=== PATIENT | female | born 1995 | race Caucasian/White ===

== ENCOUNTER 2022-10-10 16:36 | Outpatient (CLI) | payer SELFPAY ==
[~2022-10-10] VITALS: Ht 157.5 cm; Wt 112.5 kg
[2022-10-10 16:50] VITALS: BP 119/61; PULSE 104; TEMP 99
--- NOTE | 2022-10-10 16:50 | NUR ---
Presents to labor and delivery. States her water broke. Repositioned patient to get baby on monitor. Vag check done, moderate amount of white drainage noted. Amnio test done, negative results. States has not eaten since breakfast. Popsycle and sandwich given.
[2022-10-10 17:20] VITALS: BP 103/77; PULSE 102
[2022-10-10] MEDS ORDERED: PROTONIX 40MG T40 MG PO (17:23)
[2022-10-10] MEDS ORDERED: PRENATAL FORMU1 EAC3 PO (17:24)
[2022-10-10] MEDS ORDERED: ZOFRAN 4MG T4 MG/TAB PO (17:24)
[2022-10-10] MEDS ORDERED: ASPIRIN 81M81 MG/TA2 PO (17:25)
--- NOTE | 2022-10-10 17:50 | NUR ---
Discharge instructions given, verbalizes understanding. Dismissed to home with mother, ambulatory, stable, alert.
== END 2022-10-10 17:50 | disposition home or self-care (01) ==
LOC: LDRO 16:36
DX: O42.90 Premature rupture of membranes, unspecified as to length of time between rupture and onset of labor, unspecified weeks of gestation (principal); Z3A.00 Weeks of gestation of pregnancy not specified

== ENCOUNTER 2022-11-11 06:15 | Inpatient (IN) | payer MEDICAID ==
[2022-11-11] VITALS (51 sets, daily range): BP systolic 91–132; BP diastolic 47–99; PULSE 16–109; TEMP 97.7–98.7
[~2022-11-11] VITALS: Ht 157.6 cm; Wt 123.6 kg
[~2022-11-11 06:15] MED LIST: ASPIRIN 81M81 MG/TA2 PO; PRENATAL FORMU1 EAC3 PO; PROTONIX 40MG T40 MG PO; ZOFRAN 4MG T4 MG/TAB PO
--- NOTE | 2022-11-11 06:20 | NUR ---
Presents to labor and delivery for induction of labor. Assessment done, questions offered and answered. Iv start by nurse Cinthia. 0745 Pen g 5 million units iv started as ordered and per protocol. Pitocin 2 atif units iv started as ordered and per protocol.
--- NOTE | 2022-11-11 07:38 | NUR ---
Pen g 5 million units iv started as ordered and per protocol.
[2022-11-11 07:42] LABS: BASO % 0.3 % (0.0-2.0); EOS # 0.2 K/mm3 (0.0-0.7); GRAN # 5.3 K/mm3 (1.4-6.5); HEMOGLOBIN 11.4 g/dl (12.5-16.0); LYMPH # 1.7 K/mm3 (1.2-3.4); LYMPH % 21.7 % (20.0-51.0); MEAN CELL VOLUME 93 fl (80.0-100.0); MEAN CORPUSCULAR HEMOGLOBIN 32 pg (27-31); MEAN CORPUSCULAR HGB CONC 34 g/dl (33.0-37.0); MEAN PLATELET VOLUME 9.9 fl (7.4-10.4); MONO # 0.7 K/mm3 (0.1-0.6); MONO % 8.4 % (1.7-9.3); PLATELET COUNT 308 K/mm3 (130-400); REDCELL DISTRIBUTION WIDTH-CV 13.8 % (11.5-14.5)
[2022-11-11 07:44] LABS: HEMATOCRIT 33.3 % (37.0-47.0)
--- NOTE | 2022-11-11 07:45 | NUR ---
Pitocin 2 atif units iv started as ordered and per protocol.
--- NOTE | 2022-11-11 08:20 | NUR ---
Dr. Irving here, visits with patient. Vag check done. [address] Irving, reports clear fluid.
--- NOTE | 2022-11-11 08:45 | NUR ---
Rests in bed, alert. Pad changed, yellow color fluid noted. Nursery notified of yellow fluid.
[2022-11-11 08:49] LABS: TRICYCLIC ANTIDEPRESS URINE NEGATIVE
--- NOTE | 2022-11-11 09:15 | NUR ---
Rests in bed, alert, family at bedside. Dr. Irving asked to look at strip with minimal variability and no accelerations. States okay with strip.
--- NOTE | 2022-11-11 09:51 | NUR ---
Anesthesia notified of patient request for epidural.
--- NOTE | 2022-11-11 10:15 | NUR ---
Encouraged patient to breathe through contractions. States they hurt. Let her know that anesthesia Koby will be her shortly.
--- NOTE | 2022-11-11 10:30 | NUR ---
Anesthesia here, visits with patient and family. Sits up for epidural. 1041 Local given by anesthesia. 1052 Test dose given by Koby anesthesia.
--- NOTE | 2022-11-11 11:00 | NUR ---
Lies down after epidural. States starting to feel like legs are numb.
--- NOTE | 2022-11-11 11:15 | NUR ---
States feeling better. States still feeling some contractions, but not bad. Contractions are not picking up on monitor. Unable to palpate contractions.
--- NOTE | 2022-11-11 12:15 | NUR ---
1222 Ephedrine 10 ng. iv given for blood pressure 97/50.
--- NOTE | 2022-11-11 12:45 | NUR ---
Ephdrine 10 mg iv given for blood pressure of 89/57.
--- NOTE | 2022-11-11 13:05 | NUR ---
Dr. Irving here, vag exam done, reports 3-4. Placed iupc per sterile technique by Dr. Irving. Unable to connect, not the right connection.
--- NOTE | 2022-11-11 14:00 | NUR ---
Rests in bed with eyes closed. Resperations even and unlabored. Family at bedside.
--- NOTE | 2022-11-11 14:45 | NUR ---
This nurse to lunch. Nurse Vicente watching patient. Yogi put in right stirup.
--- NOTE | 2022-11-11 15:15 | NUR ---
Dr. Irving here, vag exam done. Tells patient no changes. Visits with patient about baby having late decels, and would sugest having section. Patient agrees. 1520 section called. Anesthesia notified, along with charge nurse and tech.
--- NOTE | 2022-11-11 15:30 | NUR ---
Rests in bed, alert. Pitocin off. Clipped done to abdomen. Surgical scrub put on abdomen. 1540 To o.r. via bed with two r.n.
--- NOTE | 2022-11-11 16:50 | NUR ---
To pacu via bed with this nurse and nurse Vicente. Alert, nibp on with sat monitor on. Report given by anesthesia. Denies any discomfort at this time.
--- NOTE | 2022-11-11 17:10 | NUR ---
Breast feeding baby, latches on well. Family here, visits with patient.
--- NOTE | 2022-11-11 17:20 | NUR ---
Discharge from pacu to room 210 via bed, alert, stable.
--- NOTE | 2022-11-11 17:30 | NUR ---
Rests in bed, alert. States having pain. 1740 Percocet 5/325 mg two given as ordered and per request.
--- NOTE | 2022-11-11 18:07 | NUR ---
Morphine 2 mg iv given as ordered and per request.
[2022-11-12 05:30] VITALS: BP 111/54; PULSE 75; TEMP 97.9
--- NOTE | 2022-11-12 07:00 | NUR ---
Rests in bed, alert, . Ibuprofen 800 mg given as ordered.
[2022-11-12 08:15] VITALS: BP 109/57; PULSE 77; TEMP 97.6
--- NOTE | 2022-11-12 11:00 | NUR ---
Patient calls out for nurse. Went to see what patient wants. Patient states not having enough milk because baby is crying a lot. Let her know that she is doing good with . Patient request to try some formula to see if that would help. Bottle given.
[2022-11-12 13:00] VITALS: BP 110/47; PULSE 88; TEMP 98
--- NOTE | 2022-11-12 14:15 | NUR ---
Rests in bed, alert. Percocet 5/325 mg two given as ordered and per request.
--- NOTE | 2022-11-12 15:45 | NUR ---
Rests in bed, alert. Ibuprofen 800 mg given as ordered.
--- NOTE | 2022-11-12 15:59 | NUR ---
SW responded to referral. Per nurse pt tested pos for cannibus and meth at beginning of and reports has stopped since. Pt has not tested positive during . Pt tested negative upon admission Nurse denies any concerns. Pt has history of anxiety and depression and feels she is doing fine. Pt denies any need of assistance with mental health. SW assessed need for drug and alcohol treatment; pt denied any need. Pt reports vaping nicotine. Pt has had 2 miscarriages. Pt reports living with mother, step father, and little brother in [facility]. Pt reports family is supportive. Pt reports FOC is Teo Cecily and he is supportive. Pt denies needing any baby supplies, is and selected Dr. Goldman as pourer crane ladle. Pt reports PCP is in [place] at [facility]. Pt reports having needs met with food stamps and WIC. PT reports "figuring" out daycare and plans to be off 2 months since c section occurred. Pt works at [employer] in [place]. Pt appears to be stable. DC Plan HOME
--- NOTE | 2022-11-12 16:05 | NUR ---
Baby tested neg for any drugs per nurse; umbilical cord test sent out
[2022-11-12 17:15] VITALS: BP 117/48; PULSE 82; TEMP 98.5
[2022-11-12 19:23] VITALS: BP 126/67; PULSE 84; TEMP 98.2
[2022-11-13 06:40] VITALS: BP 116/58; PULSE 79; TEMP 97.5
[2022-11-13 15:00] VITALS: BP 111/62; PULSE 95; TEMP 98.2
[2022-11-13 19:30] VITALS: BP 119/65; PULSE 75; TEMP 98.1
[2022-11-14] MEDS ORDERED: PERCOCET 325 MG1 TA2 PO (08:31)
[2022-11-14] MEDS ORDERED: MOTRIN 800800 MG/TAB PO (08:31)
[2022-11-14 08:34] VITALS: BP 123/66; PULSE 89; TEMP 97.4
--- NOTE | 2022-11-14 09:38 | NUR ---
Initial visit attempt; Family resting. Research Development Director left card offering congratulations and God's blessings for the of their daughter and information regarding the availability of Spirit[facility] at our hospital.
--- NOTE | 2022-11-14 12:59 | NUR ---
THIS PIE BAKERY LABORER ASSUMES CARE OF PATIENT FROM RAY JI RN.
[2022-11-14 16:37] VITALS: BP 120/66; PULSE 76; TEMP 98.4
[2022-11-14 19:30] VITALS: BP 119/70; PULSE 97; TEMP 98.4
[2022-11-15 08:11] VITALS: BP 129/84; PULSE 98; TEMP 97.6
--- NOTE | 2022-11-15 09:14 | NUR ---
Initial visit; Parents thanked Psych Nurse for offering "Special Blessings" for their daughter and their family. Psych Nurse thanked family for choosing our hospital.
== END 2022-11-15 10:50 | disposition home or self-care (01) | DRG 788 ==
LOC: LDR 06:15 → OB 15:01
PROVIDERS: ADMIT Obstetrics & Gynecology
PROC: 10D00Z1 Extraction of Products of Conception, Low, Open Approach (ICD-10-PCS; principal; 2022-11-11)
DX: O48.0 Post-term pregnancy (principal); Z3A.40 40 weeks gestation of pregnancy; Z37.0 Single live birth; O62.1 Secondary uterine inertia; O76 Abnormality in fetal heart rate and rhythm complicating labor and delivery; O99.214 Obesity complicating childbirth; O99.344 Other mental disorders complicating childbirth; F41.9 Anxiety disorder, unspecified; F32.A Depression, unspecified; O99.824 Streptococcus B carrier state complicating childbirth; Z23 Encounter for immunization
CPT/HCPCS: J0171; J0690; J1100; J1885; J2270; J2401; J2405; J2540; J2590; J2795; J7120